=== PATIENT | male | born 2000 | race Caucasian/White ===

== ENCOUNTER 2020-04-10 22:44 | Emergency (ER) | payer SELFPAY ==
--- NOTE | 2020-04-11 00:56 | ER ---
Nurse's Notes [facility] Name: Nabil Ambriz Age: 19 yrs Sex: Male : 2000 Arrival Date: 04/10/2020 Time: 22:51 Bed 19 Private MD: Diagnosis: Cough Presentation: 04/10 23:08 Chief complaint: Patient states: muscle aches and pains since Friday with difficulty dm5 breathing and cough. Coronavirus screen: congestion, cough unrelated to allergies, difficulty breathing, muscle pain, Client presents with at least one sign or symptom that may indicate coronavirus-19. Standard/surgical mask placed on the client. Ebola Screen: Patient negative for fever greater than or equal to 101.5 degrees Fahrenheit, and additional compatible Ebola Virus Disease symptoms Patient denies exposure to infectious person. Patient denies travel to an Ebola-affected area in the 21 days before illness onset. No symptoms or risks identified at this time. Initial Sepsis Screen: Does the patient meet any 2 criteria? No. Patient's initial sepsis screen is negative. Does the patient have a suspected source of infection? Yes: Productive cough/pneumonia. Risk Assessment: Do you want to hurt yourself or someone else? Patient reports no desire to harm self or others. Onset of symptoms was April 08, 2020. 23:08 Method Of Arrival: Ambulatory dm5 23:08 Acuity: SANDY 3 dm5 - Social history:: Patient/guardian denies using alcohol, street drugs, The patient lives with family. Screenin/01 01:15 Abuse screen: Denies threats or abuse. Denies injuries from another. Nutritional aj1 screening: No deficits noted. Tuberculosis screening: No symptoms or risk factors identified. Fall Risk None identified. Assessment: 01:15 General: Appears in no apparent distress. comfortable, Behavior is calm, cooperative, aj1 appropriate for age. Pain: Denies pain. Neuro: Level of Consciousness is awake, alert, obeys commands, Oriented to person, place, time, situation. Cardiovascular: Denies chest pain, palpitations, Heart tones S1 S2 present Patient's skin is warm and dry. Rhythm is regular. Respiratory: Reports shortness of breath cough that is hacking, persistent Airway is patent Respiratory effort is even, unlabored, Respiratory pattern is regular, symmetrical, Breath sounds are clear bilaterally. GI: No signs and/or symptoms were reported involving the gastrointestinal system. : No signs and/or symptoms were reported regarding the genitourinary system. EENT: Reports nasal congestion nasal discharge watery eyes. Derm: No signs and/or symptoms reported regarding the dermatologic system. Skin is pink, warm \T\ dry. normal. Musculoskeletal: No signs and/or symptoms reported regarding the musculoskeletal system. Circulation, motion, and sensation intact. Vital Signs: 04/10 23:08 Pulse 95; Resp 20; Pulse Ox 100% on R/A; dm5 ED Course: 22:51 Patient arrived in ED. cl3 23:09 Triage completed. dm5 04/11 00:38 Davina Watson MD is Attending Physician. ma2 00:51 Ericka Landaverde RN is Primary Nurse. aj1 01:15 Patient has correct armband on for positive identification. Bed in low position. Call aj1 light in reach. Side rails up X 1. 01:15 No provider procedures requiring assistance completed. Patient did not have IV access aj1 during this emergency room visit. Administered Medications: 01:15 Drug: TORadol 60 mg Route: IM; Site: right deltoid; aj1 01:32 Follow up: Response: No adverse reaction aj1 Outcome: 00:55 Discharge ordered by . ma2 01:32 Discharged to home ambulatory. aj1 01:32 Condition: good 01:32 Discharge instructions given to patient, Instructed on discharge instructions, follow up and referral plans. medication usage, Demonstrated understanding of instructions, follow-up care, medications, Prescriptions given X 3. 01:32 Patient left the ED. aj1 Addendum: 04/14/2020 09:39 Addendum: COVID-19 Result: Negative result given to RN to notify pt. Attempted to i w contact pt regarding negative COVID-19 swab results. Left voice mail. 09:59 Addendum: COVID-19 Result: Negative result given to RN to notify pt. Notified pt of i w negative COVID 19 swab results. Pt advised that even with a negative test result they should remain in isolation until symptom free for 3 days without medication. Pt also advised to return to the ED for worsening symptoms. Signatures: Ericka Landaverde RN RN aj1 Galina Dickinson RN RN 5 Jeison, Marjorie, RN Davina Tomas MD MD ma2 Kaitlynn Hayes cl3
--- NOTE | 2020-04-11 00:56 | EDPHYS ---
Physician Documentation [facility] Name: Nabil Ambriz Age: 19 yrs Sex: Male : 2000 Arrival Date: 04/10/2020 Time: 22:51 Bed 19 Private MD: ED Physician Davina Watson HPI: 04/11 00:53 This 19 yrs old Male presents to ER via Ambulatory with complaints of ma2 Breathing Difficulty. 00:53 This 19 yrs old Male presents to ER via Ambulatory with complaints of cough ma2 and runny nose . 00:53 The patient has shortness of breath while exercising. Onset: The symptoms/episode ma2 began/occurred gradually, 1 day(s) ago. Associated signs and symptoms: Pertinent positives: non-productive cough, Pertinent negatives: productive cough, diaphoresis, fever, loss of consciousness, nausea, numbness in extremities. Severity of symptoms: At their worst the symptoms were very mild in the emergency department the symptoms are unchanged. The patient has not experienced similar symptoms in the past. - Social history:: Patient/guardian denies using alcohol, street drugs, The patient lives with family. ROS: 00:53 Constitutional: Negative for fever, chills, and weight loss. ma2 00:53 All other systems are negative. Exam: 00:53 Constitutional: This is a well developed, well nourished patient who is awake, alert, ma2 and in no acute distress. Head/Face: Normocephalic, atraumatic. Eyes: Pupils equal round and reactive to light, extra-ocular motions intact. Lids and lashes normal. Conjunctiva and sclera are non-icteric and not injected. Cornea within normal limits. Periorbital areas with no swelling, redness, or edema. ENT: Nares patent. No nasal discharge, no septal abnormalities noted. Tympanic membranes are normal and external auditory canals are clear. Oropharynx with no redness, swelling, or masses, exudates, or evidence of obstruction, uvula midline. Mucous membranes moist. Neck: Trachea midline, no thyromegaly or masses palpated, and no cervical lymphadenopathy. Supple, full range of motion without nuchal rigidity, or vertebral point tenderness. No Meningismus. Chest/axilla: Normal chest wall appearance and motion. Nontender with no deformity. No lesions are appreciated. Cardiovascular: Regular rate and rhythm with a normal S1 and S2. No gallops, murmurs, or rubs. Normal PMI, no JVD. No pulse deficits. Respiratory: Lungs have equal breath sounds bilaterally, clear to auscultation and percussion. No rales, rhonchi or wheezes noted. No increased work of breathing, no retractions or nasal flaring. Abdomen/GI: Soft, non-tender, with normal bowel sounds. No distension or tympany. No guarding or rebound. No evidence of tenderness throughout. Skin: Warm, dry with normal turgor. Normal color with no rashes, no lesions, and no evidence of cellulitis. MS/ Extremity: Pulses equal, no cyanosis. Neurovascular intact. Full, normal range of motion. Neuro: Awake and alert, GCS 15, oriented to person, place, time, and situation. Cranial nerves II-XII grossly intact. Motor strength 5/5 in all extremities. Sensory grossly intact. Cerebellar exam normal. Normal gait. Vital Signs: 04/10 23:08 Pulse 95; Resp 20; Pulse Ox 100% on R/A; dm5 MDM: 04/11 00:38 Patient medically screened. ma2 00:53 Differential diagnosis: uri, covid, vs acute bronchitis vs allergic rhinitis. ma2 Antibiotic administration: Not indicated. Data reviewed: vital signs, nurses notes. Counseling: I had a detailed discussion with the patient and/or guardian regarding: the historical points, exam findings, and any diagnostic results supporting the discharge/admit diagnosis, the presence of at least one elevated blood pressure reading (>120/80) during this emergency department visit, the need for outpatient follow up. 04/11 00:46 Order name: OSMEL-19 ma2 Administered Medications: 01:15 Drug: TORadol 60 mg Route: IM; Site: right deltoid; aj1 01:32 Follow up: Response: No adverse reaction aj1 Disposition: 04/11/20 00:55 Discharged to Home. Impression: Cough. - Condition is Stable. - Discharge Instructions: Cough, Adult, [id number]. - Prescriptions for Diclofenac Sodium 75 mg Oral Tablet Sustained Release - take 1 tablet by ORAL route 2 times per day; 30 tablet. Zithromax Z- Cong 250 mg Oral Tablet - take 1 tablet by ORAL route as directed for 5 days Day 1 - take two (2) tablets one time. Day 2, 3, 4 , 5 take one (1) tablet once daily.; 6 tablet. Medrol (Cong) 4 mg Oral Tablets, Dose Pack - take 1 tablet by ORAL route as directed - follow package instructions; 1 packet. - Medication Reconciliation Form, Thank You Letter, Antibiotic Education, Prescription Opioid Use form. - Follow up: Private Physician; When: Tomorrow; Reason: Continuance of care. Signatures: Dispatcher [employer] Ericka Winter RN RN aj1 Davina Watson MD MD ma2 Corrections: (The following items were deleted from the chart) 01:32 00:55 04/11/2020 00:55 Discharged to Home. Impression: Cough. Condition is Stable. aj1 Prescriptions for Diclofenac Sodium 75 mg Oral Tablet Sustained Release - take 1 tablet by ORAL route 2 times per day; 30 tablet, Zithromax Z-Cong 250 mg Oral Tablet - take 1 tablet by ORAL route as directed for 5 days Day 1 - take two (2) tablets one time. Day 2, 3, 4 , 5 take one (1) tablet once daily.; 6 tablet, Medrol (Cong) 4 mg Oral Tablets, Dose Pack - take 1 tablet by ORAL route as directed - follow package instructions; 1 packet. and Forms are Medication Reconciliation Form, Thank You Letter, Antibiotic Education, Prescription Opioid Use. Follow up: Private Physician; When: Tomorrow; Reason: Continuance of care. ma2
[2020-04-11] MEDS ORDERED: KETOROLAC 30 MG/ML INJ ONE (01:14)
[2020-04-11 01:53] VITALS: O2SAT 100
== END 2020-04-11 01:32 | disposition home or self-care (01) ==
LOC: ER 22:44
DX: R05 Cough (principal); Z20.828 Contact with and (suspected) exposure to other viral communicable diseases
CPT/HCPCS: 96372; 99283; U0002

== ENCOUNTER 2021-06-04 20:03 | Emergency (ER) | payer SELFPAY ==
--- OUTSIDE RECORDS SUMMARY | 2021-06-04 20:06 | XMS REPORT | Continuity of Care Document ---
:2000 Author Organization [facility] t Address [address] [place] [id number] Care Team Providers Name Role Phone Unavailable Unavailable Unavailable Problems This patient has no known problems. Allergies, Adverse Reactions, Alerts This patient has no known allergies or adverse reactions. Medications This patient has no known medications. Procedures This patient has no known procedures. Results This patient has no known results.
[2021-06-04 21:53] LABS: SARS-COV-2 RT PCR NEGATIVE (NEGATIVE)
--- NOTE | 2021-06-04 22:23 | ER ---
Nurse's Notes [facility] Name: Nabil Ambriz Age: 20 yrs Sex: Male : 2000 Arrival Date: 06/04/2021 Time: 20:06 Bed 18 Private MD: Diagnosis: Acute pharyngitis, unspecified Presentation: 06/04 20:17 Chief complaint: Patient states: "I started not feeling good on . On Friday tw5 morning my throat was sore, it is hard to eat, hard to drink. I cannot drink anything without it making me want to throw up.". Coronavirus screen: Vaccine status: Patient reports being unvaccinated. Ebola Screen: Patient negative for fever greater than or equal to 101.5 degrees Fahrenheit, and additional compatible Ebola Virus Disease symptoms Patient denies exposure to infectious person. Patient denies travel to an Ebola-affected area in the 21 days before illness onset. Initial Sepsis Screen: Does the patient meet any 2 criteria? HR > 90 bpm. Does the patient have a suspected source of infection? No. Patient's initial sepsis screen is negative. Risk Assessment: Do you want to hurt yourself or someone else? Patient reports no desire to harm self or others. Onset of symptoms was May 31, 2021. 20:17 Method Of Arrival: Ambulatory tw5 20:17 Acuity: SANDY 4 tw5 Triage Assessment: 20:19 General: Appears in no apparent distress. Behavior is calm, cooperative, appropriate tw5 for age. Pain: Complains of pain in uvula, left aspect of posterior pharynx and right aspect of posterior pharynx Pain currently is 8 out of 10 on a pain scale. EENT: Throat is reddened bilaterally with gag reflex present. Historical: - Allergies: 20:19 No Known Allergies; tw5 - Home Meds: 20:19 None [Active]; tw5 - PMHx: 20:19 None; tw5 - PSHx: 20:19 None; tw5 - Immunization history:: Flu vaccine is not up to date. - Social history:: Smoking status: Reported history of juuling and/or vaping. Screenin:22 Abuse screen: Denies threats or abuse. Denies injuries from another. Nutritional tw5 screening: Difficulty chewing/swallowing? Yes. 22:38 Tuberculosis screening: No symptoms or risk factors identified. Fall Risk None as6 identified. Assessment: 20:22 Respiratory: Respiratory effort is. tw5 21:08 Reassessment: Patient appears in no apparent distress at this time. tw5 22:36 General: Appears in no apparent distress. Behavior is calm, cooperative. Pain: Denies as6 pain. Neuro: Level of Consciousness is awake, alert, obeys commands, Oriented to person, place, time, situation. Cardiovascular: Capillary refill < 3 seconds Patient's skin is warm and dry. Respiratory: Airway is patent Trachea midline Respiratory effort is even, unlabored, Respiratory pattern is regular, symmetrical, Breath sounds are clear bilaterally. EENT: Reports sore throat . Vital Signs: 20:17 BP 108 / 71; Pulse 104; Resp 18; Temp 98.6(O); Pulse Ox 98% on R/A; Weight 68.04 kg; tw5 Height 5 ft. 7 in. (170.18 cm); Pain 8/10; 22:35 BP 106 / 77; Pulse 84; Resp 16 S; Pulse Ox 99% on R/A; as6 20:17 Body Mass Index 23.49 (68.04 kg, 170.18 cm) tw5 ED Course: 20:06 Patient arrived in ED. kc5 20:19 Triage completed. tw5 20:19 Arm band placed on right wrist. tw5 20:22 Strep Sent. tw5 20:22 Strep swab sent to lab. tw5 21:08 COVID swab sent to lab. Flu and/or RSV swab sent to lab. tw5 21:09 COVID-19/FLU A+B (Document "Date of Onset" if Symptomatic) Sent. tw5 21:09 Strep Sent. tw5 21:54 Chiki Felipe, MICHELET is Primary Nurse. as6 22:02 Som Madrigal NP is PHCP. pm1 22:02 Martinez Little MD is Attending Physician. pm1 22:37 No provider procedures requiring assistance completed. Patient did not have IV access as6 during this emergency room visit. 22:38 Bed in low position. Call light in reach. Side rails up X2. Pulse ox on. NIBP on. as6 Administered Medications: 22:35 Drug: Decadron (dexamethasone) 10 mg Route: IM; Site: left ventrogluteal; as6 22:38 Follow up: Response: No adverse reaction as6 Outcome: 22:22 Discharge ordered by . pm1 22:37 Discharged to home ambulatory. as6 22:37 Condition: stable 22:37 Discharge instructions given to patient, Instructed on discharge instructions, follow up and referral plans. Demonstrated understanding of instructions, follow-up care. 22:38 Patient left the ED. as6 Signatures: Som Madrigal NP BUSINESS DEVELOPMENT EXECUTIVE pm1 Nury Dorsey tw5 Chiki Felipe RN RN as6 Courtney Antonio kc5
--- NOTE | 2021-06-04 22:23 | EDPHYS ---
Physician Documentation [facility] Name: Nabil Ambriz Age: 20 yrs Sex: Male : 2000 Arrival Date: 06/04/2021 Time: 20:06 Bed 18 Private MD: ED Physician Martinez Little HPI: 06/04 22:15 This 20 yrs old Male presents to ER via Ambulatory with complaints of Sore Throat. pm1 22:15 The patient presents with sore throat. The patient describes throat pain as constant, pm1 raw, scratchy. Onset: The symptoms/episode began/occurred 4 day(s) ago. Severity of symptoms: in the emergency department the symptoms are actually worse. Modifying factors: the symptoms are aggravated by fluids, foods, swallowing, The patient has had contact with sick significant other, similar symptoms. Associated signs and symptoms: Pertinent negatives cough, fever, vomiting. The patient has not recently seen a physician. Historical: - Allergies: 20:19 No Known Allergies; tw5 - Home Meds: 20:19 None [Active]; tw5 - PMHx: 20:19 None; tw5 - PSHx: 20:19 None; tw5 - Immunization history:: Flu vaccine is not up to date. - Social history:: Smoking status: Reported history of juuling and/or vaping. ROS: 22:15 Constitutional: Negative for fever, chills, and weight loss. pm1 22:15 Cardiovascular: Negative for chest pain, palpitations, and edema, Respiratory: Negative for shortness of breath, cough, wheezing, and pleuritic chest pain. 22:15 MS/Extremity: Negative for injury and deformity, Skin: Negative for injury, rash, and discoloration, Neuro: Negative for headache, weakness, numbness, tingling, and seizure. 22:15 ENT: Positive for sore throat, Negative for ear pain. 22:15 Neck: Positive for swollen nodes. 22:15 Abdomen/GI: Positive for nausea, Negative for abdominal pain, vomiting, diarrhea. 22:15 All other systems are negative. Exam: 22:15 Constitutional: This is a well developed, well nourished patient who is awake, alert, pm1 and in no acute distress. Head/Face: Normocephalic, atraumatic. 22:15 Skin: Warm, dry with normal turgor. Normal color with no rashes, no lesions, and no evidence of cellulitis. MS/ Extremity: Pulses equal, no cyanosis. Neurovascular intact. Full, normal range of motion. 22:15 ENT: Exam is negative for acute changes, Mouth: Lips: normal, moist, Oral mucosa: normal, pink and intact, moist, Posterior pharynx: Tonsils: bilaterally enlarged, with erythema, no exudate, no ulcerations, erythema, that is moderate, exudate, is not appreciated, peritonsillar mass, is not appreciated, pooling of secretions, is not appreciated. 22:15 Neck: Lymph nodes: lymphadenopathy is appreciated, anterior cervical nodes. 22:15 Cardiovascular: Exam negative for acute changes, Rate: normal, Rhythm: regular, Pulses: no pulse deficits are appreciated. 22:15 Respiratory: Exam negative for acute changes, respiratory distress, shortness of breath. 22:15 Neuro: Exam negative for acute changes, Orientation: is normal, Mentation: is normal, Motor: is normal, moves all fours. Vital Signs: 20:17 BP 108 / 71; Pulse 104; Resp 18; Temp 98.6(O); Pulse Ox 98% on R/A; Weight 68.04 kg; tw5 Height 5 ft. 7 in. (170.18 cm); Pain 8/10; 22:35 BP 106 / 77; Pulse 84; Resp 16 S; Pulse Ox 99% on R/A; as6 20:17 Body Mass Index 23.49 (68.04 kg, 170.18 cm) tw5 MDM: 22:10 Patient medically screened. [facility] 22:20 Data reviewed: vital signs. Data interpreted: Pulse oximetry: on room air is 98 %. pm1 Interpretation: normal. Counseling: I had a detailed discussion with the patient and/or guardian regarding: the historical points, exam findings, and any diagnostic results supporting the discharge/admit diagnosis, lab results, the need for outpatient follow up, to return to the emergency department if symptoms worsen or persist or if there are any questions or concerns that arise at home. 22:20 Differential diagnosis: mononucleosis, peritonsillar abscess pharyngitis. pm1 06/04 20:15 Order name: Strep; Complete Time: 22:15 tw5 06/04 20:59 Order name: COVID-19/FLU A+B (Document "Date of Onset" if Symptomatic); Complete Time: as6 22:15 06/04 21:28 Order name: Throat Culture EDMS Administered Medications: 22:35 Drug: Decadron (dexamethasone) 10 mg Route: IM; Site: left ventrogluteal; as6 22:38 Follow up: Response: No adverse reaction as6 Disposition: 06/05 08:52 Co-signature as Attending Physician, Martinez Little MD I agree with the assessment and cristy plan of care. Disposition Summary: 06/04/21 22:22 Discharge Ordered Location: Home pm1 Problem: new pm1 Symptoms: have improved pm1 Condition: Stable pm1 Diagnosis - Acute pharyngitis, unspecified pm1 Followup: pm1 - With: Emergency Department - When: As needed - Reason: Worsening of condition Followup: pm1 - With: Private Physician - When: 2 - 3 days - Reason: Recheck today's complaints, Continuance of care, Re-evaluation by your physician Discharge Instructions: - Discharge Summary Sheet pm1 - Pharyngitis pm1 Forms: - Medication Reconciliation Form pm1 - Thank You Letter pm1 - Antibiotic Education pm1 - Work release form pm1 - Prescription Opioid Use pm1 Signatures: Dispatcher [employer] EDMartinez Rothman MD MD cha Marinas, Patrick, CARBURETOR EXPERT CARBURETOR EXPERT pm1 Nury Dorsey tw5 Chiki Felipe, MICHELET RN as6
[2021-06-04] MEDS ORDERED: dexAMETHasone 10 MG/ML VIAL ONE (22:32)
[2021-06-05 04:07] VITALS: BP 106/77; O2SAT 99
[2021-06-05 04:09] VITALS: TEMP 98.6
== END 2021-06-04 22:38 | disposition home or self-care (01) ==
LOC: ER 20:03
DX: J02.9 Acute pharyngitis, unspecified (principal); Z20.822 Contact with and (suspected) exposure to COVID-19
CPT/HCPCS: 0240U; 87070; 87081; 96372; 99283; J1100

== ENCOUNTER 2021-07-11 08:14 | Emergency (ER) | payer SELFPAY ==
--- OUTSIDE RECORDS SUMMARY | 2021-07-11 08:17 | XMS REPORT | Continuity of Care Document ---
:2000 Author Organization [facility] t Address [address] [place] [address] Care Team Providers Name Role Phone Unavailable Unavailable Unavailable Problems This patient has no known problems. Allergies, Adverse Reactions, Alerts This patient has no known allergies or adverse reactions. Medications This patient has no known medications. Procedures This patient has no known procedures. Results This patient has no known results.
--- NOTE | 2021-07-11 09:00 | EDPHYS ---
Physician Documentation [facility] Name: Nabil Ambriz Age: 20 yrs Sex: Male : 2000 Arrival Date: 07/11/2021 Time: 08:16 Bed 8 Private MD: ED Physician Davina Watson HPI: 07/11 08:57 This 20 yrs old Male presents to ER via Ambulatory with complaints of Blurred Vision, ma2 Headache. 08:57 Patient had an episode of blurred vision near syncope, he said that he has been having ma2 runny nose for the last 2 days, no sore throat or cough, no vomiting diarrhea.. Historical: - Allergies: 08:38 No Known Allergies; jg9 - Home Meds: 08:38 None [Active]; jg9 - PMHx: 08:38 None; jg9 - PSHx: 08:38 None; jg9 - Immunization history:: Adult Immunizations not up to date. - Social history:: Smoking status: Reported history of juuling and/or vaping. - Family history:: not pertinent. ROS: 08:57 Constitutional: Negative for fever, chills, and weight loss, Eyes: Negative for injury, ma2 pain, redness, and discharge. 08:57 All other systems are negative. Exam: 08:57 Constitutional: This is a well developed, well nourished patient who is awake, alert, ma2 and in no acute distress. Head/Face: Normocephalic, atraumatic. Eyes: Pupils equal round and reactive to light, extra-ocular motions intact. Lids and lashes normal. Conjunctiva and sclera are non-icteric and not injected. Cornea within normal limits. Periorbital areas with no swelling, redness, or edema. ENT: Red oropharynx, otherwise nares patent. No nasal discharge, no septal abnormalities noted. Tympanic membranes are normal and external auditory canals are clear. Oropharynx with no redness, swelling, or masses, exudates, or evidence of obstruction, uvula midline. Mucous membranes moist. Neck: Trachea midline, no thyromegaly or masses palpated, and no cervical lymphadenopathy. Supple, full range of motion without nuchal rigidity, or vertebral point tenderness. No Meningismus. Chest/axilla: Normal chest wall appearance and motion. Nontender with no deformity. No lesions are appreciated. Cardiovascular: Regular rate and rhythm with a normal S1 and S2. No gallops, murmurs, or rubs. Normal PMI, no JVD. No pulse deficits. Respiratory: Lungs have equal breath sounds bilaterally, clear to auscultation and percussion. No rales, rhonchi or wheezes noted. No increased work of breathing, no retractions or nasal flaring. Abdomen/GI: Soft, non-tender, with normal bowel sounds. No distension or tympany. No guarding or rebound. No evidence of tenderness throughout. Skin: Warm, dry with normal turgor. Normal color with no rashes, no lesions, and no evidence of cellulitis. MS/ Extremity: Pulses equal, no cyanosis. Neurovascular intact. Full, normal range of motion. Neuro: Awake and alert, GCS 15, oriented to person, place, time, and situation. Cranial nerves II-XII grossly intact. Motor strength 5/5 in all extremities. Sensory grossly intact. Cerebellar exam normal. Normal gait. Vital Signs: 08:34 BP 114 / 66; Pulse 84; Resp 14; Temp 98.2(TE); Pulse Ox 99% ; Weight 68.04 kg (R); jg9 Height 5 ft. 8 in. (172.72 cm) (R); 09:11 BP 115 / 67; Pulse 81; Resp 15; Pulse Ox 99% on R/A; ll1 08:34 Body Mass Index 22.81 (68.04 kg, 172.72 cm) jg9 Visual Acuity: 08:45 Left Eye Visual acuity 20/25, Pupil size 3 mm, ; Right Eye Visual acuity 20/25, Pupil jg9 size 3 mm, ; Both Eyes Visual acuity 20/25; Without Lenses; MDM: 08:57 Differential diagnosis: migraine, tension headache, vasomotor headache. Data reviewed: ma2 vital signs, nurses notes, EMS record. Counseling: I had a detailed discussion with the patient and/or guardian regarding: the historical points, exam findings, and any diagnostic results supporting the discharge/admit diagnosis, the presence of at least one elevated blood pressure reading (>120/80) during this emergency department visit, the need for outpatient follow up. Response to treatment: the patient's symptoms have markedly improved after treatment. 09:00 Patient medically screened. ma2 07/11 09:12 Order name: EKG; Complete Time: 09:13 ll1 07/11 09:13 Order name: EKG - Nurse/Tech; Complete Time: 09:13 ll1 Administered Medications: No medications were administered Disposition Summary: 07/11/21 09:00 Discharge Ordered Location: Home ma2 Condition: Stable ma2 Diagnosis - Acute upper respiratory infection, unspecified ma2 Followup: ma2 - With: Private Physician - When: Tomorrow - Reason: If symptoms return, Continuance of care Discharge Instructions: - Discharge Summary Sheet ma2 - Upper Respiratory Infection, Adult ma2 Forms: - Medication Reconciliation Form ma2 - Thank You Letter ma2 - Antibiotic Education ma2 - Prescription Opioid Use ma2 - Work release form ll1 Signatures: Davina Watson MD MD ma2 Jose Carlos Hayes RN RN ll1 Aby John RN RN jg9 Corrections: (The following items were deleted from the chart) 08:59 08:57 Constitutional: This is a well developed, well nourished patient who is awake, ma2 alert, and in no acute distress. Head/Face: Normocephalic, atraumatic. Eyes: Pupils equal round and reactive to light, extra-ocular motions intact. Lids and lashes normal. Conjunctiva and sclera are non-icteric and not injected. Cornea within normal limits. Periorbital areas with no swelling, redness, or edema. ENT: Nares patent. No nasal discharge, no septal abnormalities noted. Tympanic membranes are normal and external auditory canals are clear. Oropharynx with no redness, swelling, or masses, exudates, or evidence of obstruction, uvula midline. Mucous membranes moist. Neck: Trachea midline, no thyromegaly or masses palpated, and no cervical lymphadenopathy. Supple, full range of motion without nuchal rigidity, or vertebral point tenderness. No Meningismus. Chest/axilla: Normal chest wall appearance and motion. Nontender with no deformity. No lesions are appreciated. Cardiovascular: Regular rate and rhythm with a normal S1 and S2. No gallops, murmurs, or rubs. Normal PMI, no JVD. No pulse deficits. Respiratory: Lungs have equal breath sounds bilaterally, clear to auscultation and percussion. No rales, rhonchi or wheezes noted. No increased work of breathing, no retractions or nasal flaring. Abdomen/GI: Soft, non-tender, with normal bowel sounds. No distension or tympany. No guarding or rebound. No evidence of tenderness throughout. Skin: Warm, dry with normal turgor. Normal color with no rashes, no lesions, and no evidence of cellulitis. MS/ Extremity: Pulses equal, no cyanosis. Neurovascular intact. Full, normal range of motion. Neuro: Awake and alert, GCS 15, oriented to person, place, time, and situation. Cranial nerves II-XII grossly intact. Motor strength 5/5 in all extremities. Sensory grossly intact. Cerebellar exam normal. Normal gait. ma2
--- NOTE | 2021-07-11 09:00 | ER ---
Nurse's Notes [facility] Name: Nabil Ambriz Age: 20 yrs Sex: Male : 2000 Arrival Date: 07/11/2021 Time: 08:16 Bed 8 Private MD: Diagnosis: Acute upper respiratory infection, unspecified Presentation: 07/11 08:34 Chief complaint: Patient states: 3 days ago on Friday around 6 PM I started getting a jg9 headache but it went away, and then I felt nauseated and had chills that lasted 2 days, today while at work on the [employer] while walking my vision went dark and I kind of stumbled and my co-workers saw me and asked it I was ok and I told them I wasn't feeling well so they advised me to come the emergency department. Coronavirus screen: Vaccine status: Patient reports being unvaccinated. Ebola Screen: Patient negative for fever greater than or equal to 101.5 degrees Fahrenheit, and additional compatible Ebola Virus Disease symptoms Patient denies exposure to infectious person. Patient denies travel to an Ebola-affected area in the 21 days before illness onset. Initial Sepsis Screen: Does the patient meet any 2 criteria? No. Patient's initial sepsis screen is negative. Does the patient have a suspected source of infection? No. Patient's initial sepsis screen is negative. Risk Assessment: Do you want to hurt yourself or someone else? Patient reports no desire to harm self or others. Onset of symptoms was June 07, 2021. 08:34 Method Of Arrival: Ambulatory j9 08:34 Acuity: SANDY 3 jg9 Triage Assessment: 08:38 General: Appears in no apparent distress. Behavior is calm, cooperative. Pain: Denies jg9 pain. Neuro: Reports recent vision impairment and headache. 08:39 Pain: Denies pain. jg9 08:40 Headache History: Other no current headache, no hx. Pain: Pain. Pain: Denies pain. Pain jg9 currently is 0 out of 10 on a pain scale. Neuro: Reports. 08:40 Pain: Pain began 2-3 days ago. jg9 08:41 Pain: Also complains of no other associated symptoms. jg9 Historical: - Allergies: 08:38 No Known Allergies; jg9 - Home Meds: 08:38 None [Active]; jg9 - PMHx: 08:38 None; jg9 - PSHx: 08:38 None; jg9 - Immunization history:: Adult Immunizations not up to date. - Social history:: Smoking status: Reported history of juuling and/or vaping. - Family history:: not pertinent. Screenin:39 Abuse screen: Denies threats or abuse. Denies injuries from another. Nutritional jg9 screening: No deficits noted. Tuberculosis screening: No symptoms or risk factors identified. Fall Risk None identified. Assessment: 08:54 Reassessment: Patient appears in no apparent distress at this time. No changes from 1 previously documented assessment. Patient and/or family updated on plan of care and expected duration. Pain level reassessed. Patient is alert, oriented x 3, equal unlabored respirations, skin warm/dry/pink. Vital Signs: 08:34 BP 114 / 66; Pulse 84; Resp 14; Temp 98.2(TE); Pulse Ox 99% ; Weight 68.04 kg (R); jg9 Height 5 ft. 8 in. (172.72 cm) (R); 09:11 BP 115 / 67; Pulse 81; Resp 15; Pulse Ox 99% on R/A; ll1 08:34 Body Mass Index 22.81 (68.04 kg, 172.72 cm) jg9 Visual Acuity: 08:45 Left Eye Visual acuity 20/25, Pupil size 3 mm, ; Right Eye Visual acuity 20/25, Pupil jg9 size 3 mm, ; Both Eyes Visual acuity 20/25; Without Lenses; ED Course: 08:16 Patient arrived in ED. ds1 08:18 Davina Watson MD is Attending Physician. ma2 08:38 Triage completed. jg9 08:39 Arm band placed on right wrist. jg9 08:42 Jose Carlos Hayes, MICHELET is Primary Nurse. ll1 08:42 Patient placed in an exam room, on a stretcher. ll1 08:43 Patient has correct armband on for positive identification. Bed in low position. Call ll1 light in reach. Side rails up X 1. Cardiac monitoring not applicable on this patient. 08:55 Dr. Watson at bedside. ll1 09:12 No provider procedures requiring assistance completed. Patient did not have IV access ll1 during this emergency room visit. Administered Medications: No medications were administered Outcome: 09:00 Discharge ordered by . jose 09:12 Discharged to home ambulatory. ll1 09:12 Condition: stable 09:12 Discharge instructions given to patient, Instructed on discharge instructions, follow up and referral plans. Demonstrated understanding of instructions, follow-up care. 09:14 Patient [address] the ED[address] [facility] Signatures: Marva Tolliver ds1 Davina Watson MD MD ma2 Jose Carlos Hayes RN RN ll1 Aby John RN RN jg9 Corrections: (The following items were deleted from the chart) 08:40 08:38 Headache History: Denies prior headaches. jg9 jg9
[2021-07-11 09:19] VITALS: TEMP 98.2; O2SAT 99
[2021-07-11 09:20] VITALS: BP 115/67
== END 2021-07-11 09:14 | disposition home or self-care (01) ==
LOC: ER 08:14
DX: J06.9 Acute upper respiratory infection, unspecified (principal)
CPT/HCPCS: 93005; 99282

== ENCOUNTER 2021-08-01 14:29 | Emergency (ER) | payer SELFPAY ==
--- OUTSIDE RECORDS SUMMARY | 2021-08-01 14:32 | XMS REPORT | Continuity of Care Document ---
:2000 Author Organization [facility] t Address [address] [place] [address] Dr. Dean [address] [place] [id number] Care Team Providers Name Role Phone Unavailable Unavailable Unavailable Problems This patient has no known problems. Allergies, Adverse Reactions, Alerts This patient has no known allergies or adverse reactions. Medications This patient has no known medications. Procedures This patient has no known procedures. Results This patient has no known results.
--- NOTE | 2021-08-01 15:52 | RAD REPORT ---
EXAM DESCRIPTION: RAD - Hand Right 3 View - 08/01/2021 3:42 pm CLINICAL HISTORY: PAIN, blunt force trauma to the hand, pain primarily middle finger go COMPARISON: No comparisonsNone. FINDINGS: No fracture is identified. There is no dislocation or periosteal reaction noted. No forei gn body or significant soft tissue abnormality. IMPRESSION: Negative right hand examination.
--- NOTE | 2021-08-01 15:53 | RAD REPORT ---
EXAM DESCRIPTION: RAD - Knee Left 3 View - 08/01/2021 3:42 pm CLINICAL HISTORY: PAIN, trip and fall COMPARISON: No comparisons FINDINGS: No fracture, dislocation or periosteal reaction.No joint effusion seen. No joint space gallo rowing. No soft tissue abnormality. IMPRESSION: Negative left knee. Clinical concerns for internal derangement or occult bony injury could be further assessed with MR im aging.
--- NOTE | 2021-08-01 16:04 | ER ---
Nurse's Notes [facility] Name: Nabil Ambriz Age: 20 yrs Sex: Male : 2000 Arrival Date: 08/01/2021 Time: 14:32 Bed 9 Private MD: Diagnosis: Contusion of finger without damage to nail;Pain in left knee Presentation: 08/01 14:38 Chief complaint:. Chief complaint: Patient states: "I was carrying a hydraulic hermann at [employer] work and tripped over a hose. The hermann smashed my right middle finger and my right knee I think got hyperextended." Pt c/o right middle finger pain and lleft knee pain that radiated to his back. Coronavirus screen: Vaccine status: Patient reports being unvaccinated. Client denies travel out of the [place] in the last 14 days. At this time, the client does not indicate any symptoms associated with coronavirus-19. Ebola Screen: Patient negative for fever greater than or equal to 101.5 degrees Fahrenheit, and additional compatible Ebola Virus Disease symptoms Patient denies exposure to infectious person. Patient denies travel to an Ebola-affected area in the 21 days before illness onset. No symptoms or risks identified at this time. Initial Sepsis Screen: Does the patient meet any 2 criteria? No. Patient's initial sepsis screen is negative. Does the patient have a suspected source of infection? No. Patient's initial sepsis screen is negative. Risk Assessment: Do you want to hurt yourself or someone else? Patient reports no desire to harm self or others. Onset of symptoms is unknown. 14:38 Acuity: SANDY 4 ab2 14:38 Method Of Arrival: Ambulatory ab2 Triage Assessment: 14:41 General: Appears in no apparent distress. uncomfortable, Behavior is calm, cooperative, ab2 appropriate for age. Pain: Complains of pain in right hand and left knee. Musculoskeletal: Reports pain in right hand and left leg. Historical: - Allergies: 14:41 No Known Allergies; ab2 - Home Meds: 14:41 None [Active]; ab2 - PMHx: 14:41 None; ab2 - PSHx: 14:41 None; ab2 - Immunization history:: Adult Immunizations up to date. - Social history:: Smoking status: Reported history of juuling and/or vaping. Screenin:54 Abuse screen: Denies threats or abuse. Nutritional screening: No deficits noted. ss7 Tuberculosis screening: No symptoms or risk factors identified. Fall Risk None identified. Assessment: 14:53 General: Appears in no apparent distress. Behavior is calm, cooperative, appropriate ss7 for age. Neuro: No deficits noted. Cardiovascular: Heart tones S1 S2 Capillary refill < 3 seconds. Respiratory: Breath sounds are clear bilaterally. GI: No deficits noted. : No deficits noted. EENT: No deficits noted. Derm: No deficits noted. Musculoskeletal: Swelling present in right hand Reports pain in left knee. Vital Signs: 14:38 BP 123 / 81; Pulse 72; Resp 15; Temp 98.9(TE); Pulse Ox 99% on R/A; Weight 65.77 kg; ab2 Height 5 ft. 8 in. (172.72 cm); Pain 9/10; 15:52 BP 109 / 65; Pulse 72; Resp 18; Pulse Ox 98% on R/A; ss7 14:38 Body Mass Index 22.05 (65.77 kg, 172.72 cm) ab2 ED Course: 14:32 Patient arrived in ED. kz 14:41 Triage completed. ab2 14:42 Arm band placed on left wrist. ab2 14:49 Kurt Cm PA is PHCP. jr8 14:49 Gokul Carballo MD is Attending Physician. jr8 14:53 Ladonna Oropeza, MICHELET is Primary Nurse. ss7 14:54 Patient has correct armband on for positive identification. ss7 14:54 No provider procedures requiring assistance completed. Patient did not have IV access ss7 during this emergency room visit. 15:25 X-ray completed. Portable x-ray completed in exam room. Patient tolerated procedure mh1 well. 15:52 XRAY Hand RIGHT 3 View In Process Unspecified. EDMS 15:52 XRAY Knee LEFT 3 view In Process Unspecified. EDMS 16:03 Gigi Mathur MD is Referral Physician. jr8 Administered Medications: No medications were administered Outcome: 16:04 Discharge ordered by . jr8 16:05 Discharged to home ambulatory. ss7 16:05 Condition: good 16:05 Discharge instructions given to patient, Instructed on discharge instructions, follow up and referral plans. Demonstrated understanding of instructions, follow-up care. 16:21 Patient left the ED. ss7 Signatures: Dispatcher [employer] EDMS Lillian Abdul mh1 Kurt Cm PA PA jr8 Omar Hassan ab2 Ladonna Oropeza RN RN ss7 Jacqueline Guerraz Corrections: (The following items were deleted from the chart) 14:42 14:38 Chief complaint: Patient states: "I was carrying a hydraulic hermann at work and ab2 tripped over a hose. The hermann smashed my right middle finger and my right knee I think got hyperextended." Pt c/o right middle finger pain and right knee pain that radiated to his back. ab2
--- NOTE | 2021-08-01 16:04 | EDPHYS ---
Physician Documentation [facility] Name: Nabil Ambriz Age: 20 yrs Sex: Male : 2000 Arrival Date: 08/01/2021 Time: 14:32 Bed 9 Private MD: ED Physician Gokul Carballo HPI: 08/01 15:02 This 20 yrs old Male presents to ER via Ambulatory with complaints of Knee Injury - jr8 Left, Hand Injury - Right. 15:02 This is a 20-year-old male patient who presented to the emergency room with complaints jr8 of revamping room with knee pain. Patient stated that he was carrying a hydraulic spike hammer when he tripped hyperextending his knee and causing the hammer to land onto his right middle finger. Patient has had pain since the fall. Denies hitting head or neck or any other injury at this time.. Severity of symptoms: At their worst the symptoms were mild in the emergency department the symptoms are unchanged. The patient has not experienced similar symptoms in the past. The patient has not recently seen a physician. Historical: - Allergies: 14:41 No Known Allergies; ab2 - Home Meds: 14:41 None [Active]; ab2 - PMHx: 14:41 None; ab2 - PSHx: 14:41 None; ab2 - Immunization history:: Adult Immunizations up to date. - Social history:: Smoking status: Reported history of juuling and/or vaping. ROS: 15:02 Eyes: Negative for injury, pain, redness, and discharge, ENT: Negative for injury, jr8 pain, and discharge, Neck: Negative for injury, pain, and swelling, Cardiovascular: Negative for chest pain, palpitations, and edema, Respiratory: Negative for shortness of breath, cough, wheezing, and pleuritic chest pain, Abdomen/GI: Negative for abdominal pain, nausea, vomiting, diarrhea, and constipation, Back: Negative for injury and pain, Skin: Negative for injury, rash, and discoloration, Neuro: Negative for headache, weakness, numbness, tingling, and seizure. 15:02 MS/extremity: Positive for pain, swelling, tenderness, of the right hand and left knee. Exam: 15:02 Constitutional: This is a well developed, well nourished patient who is awake, alert, jr8 and in no acute distress. Head/Face: Normocephalic, atraumatic. Neck: Trachea midline, no thyromegaly or masses palpated, and no cervical lymphadenopathy. Supple, full range of motion without nuchal rigidity, or vertebral point tenderness. No Meningismus. Chest/axilla: Normal chest wall appearance and motion. Nontender with no deformity. No lesions are appreciated. Cardiovascular: Regular rate and rhythm with a normal S1 and S2. No gallops, murmurs, or rubs. Normal PMI, no JVD. No pulse deficits. Respiratory: Lungs have equal breath sounds bilaterally, clear to auscultation and percussion. No rales, rhonchi or wheezes noted. No increased work of breathing, no retractions or nasal flaring. Abdomen/GI: Soft, non-tender, with normal bowel sounds. No distension or tympany. No guarding or rebound. No evidence of tenderness throughout. Back: No spinal tenderness. No costovertebral tenderness. Full range of motion. Skin: Warm, dry with normal turgor. Normal color with no rashes, no lesions, and no evidence of cellulitis. Neuro: Awake and alert, GCS 15, oriented to person, place, time, and situation. Cranial nerves II-XII grossly intact. Motor strength 5/5 in all extremities. Sensory grossly intact. 15:02 Musculoskeletal/extremity: Extremities: grossly normal except: noted in the left knee: Patient has mild tenderness to the posterior left knee. Full range of motion both active and passive. Normal sensation with 2+ pedal pulses noted. No external swelling or trauma., noted in the right hand: pain, swelling, tenderness, right middle finger, ROM: intact in all extremities, Circulation is intact in all extremities. Vital Signs: 14:38 BP 123 / 81; Pulse 72; Resp 15; Temp 98.9(TE); Pulse Ox 99% on R/A; Weight 65.77 kg; ab2 Height 5 ft. 8 in. (172.72 cm); Pain 9/10; 15:52 BP 109 / 65; Pulse 72; Resp 18; Pulse Ox 98% on R/A; ss7 14:38 Body Mass Index 22.05 (65.77 kg, 172.72 cm) ab2 Procedures: 16:02 Splinting: Splint applied to right hand using finger splint, applied by nurse. Examined jr8 by me, post splint application: neurovascular intact, 2+ distal pulses palpable, brisk capillary refill noted, Patient tolerated well. MDM: 14:49 Patient medically screened. jr8 15:59 Data reviewed: vital signs, nurses notes, radiologic studies, plain films. Data jr8 interpreted: Pulse oximetry: on room air is 98 %. Interpretation: normal. Counseling: I had a detailed discussion with the patient and/or guardian regarding: the historical points, exam findings, and any diagnostic results supporting the discharge/admit diagnosis, radiology results, the need for outpatient follow up, a family practitioner, to return to the emergency department if symptoms worsen or persist or if there are any questions or concerns that arise at home. 16:02 ED course: Discussed with patient that he needs to ice and take anti-inflammatories jr8 that were going to give him for his hand and knee. Will vegetable picker a soft brace for his knee at [facility] or the pharmacy of his choice. No need for direct immobilization at this time as he can weight-bear and tolerate appropriately. Most likely small tendon sprain to the posterior knee. Discussed with him that both x-rays were unremarkable at this time. If he were to continue to have problems we will refer him to orthopedics and hand. Patient with this at this time.. 08/01 15:01 Order name: XRAY Hand RIGHT 3 View; Complete Time: 15:58 jr8 08/01 15:01 Order name: XRAY Knee LEFT 3 view; Complete Time: 15:58 jr8 08/01 16:02 Order name: Finger Splint; Complete Time: 16:05 jr8 Administered Medications: No medications were administered Disposition: 18:45 Co-signature as Attending Physician, Gokul Carballo MD. rn Disposition Summary: 08/01/21 16:04 Discharge Ordered Location: Home jr8 Problem: new jr8 Symptoms: have improved jr8 Condition: Stable jr8 Diagnosis - Contusion of finger without damage to nail jr8 - Pain in left knee jr8 Followup: jr8 - With: Gigi Mathur MD - When: 1 week - Reason: Recheck today's complaints, Continuance of care, Re-evaluation by your physician Discharge Instructions: - Discharge Summary Sheet jr8 - Contusion jr8 - Musculoskeletal Pain jr8 - Acute Knee Pain, Adult jr8 Forms: - Work release form jr8 - Medication Reconciliation Form jr8 - Thank You Letter jr8 - Antibiotic Education jr8 - Prescription Opioid Use jr8 Prescriptions: - Ibuprofen 800 mg Oral Tablet - take 1 tablet by ORAL route every 12 hours As needed take with food; 20 tablet; jr8 Refills: 0, Product Selection Permitted Signatures: Dispatcher [employer] Gokul Singh MD MD rn Kurt Cm PA PA jr8 Omar Hassan2
[2021-08-01 16:59] VITALS: TEMP 98.9
[2021-08-01 17:00] VITALS: BP 109/65; O2SAT 98
== END 2021-08-01 16:21 | disposition home or self-care (01) ==
LOC: ER 14:29
DX: S60.031A Contusion of right middle finger without damage to nail, initial encounter (principal); M25.562 Pain in left knee; W22.8XXA Striking against or struck by other objects, initial encounter
CPT/HCPCS: 99283

== ENCOUNTER 2021-11-15 11:02 | Emergency (ER) | payer SELFPAY ==
[2021-11-15 14:14] LABS: Urine Blood Negative (Negative); Urine Glucose Negative (Negative); Urine Protein 1+ (Negative); Urine Specific Gravity >=1.030 (1.005-1.030); Urine pH 5.5 (5.0-7.0)
[2021-11-15 14:23] LABS: Absolute Lymphocytes (CBC) 0.5 K/uL (0.7-4.9); Hematocrit 47.9 % (39.6-49.0); Lymphocytes % 8.6 % (15.3-44.8); MCV 85.7 fL (80-100); MPV 8.8 fL (7.6-11.3); RBC Red Blood Cell Count 5.59 M/uL (4.33-5.43)
[2021-11-15 14:36] LABS: Potassium 3.6 mmol/L (3.5-5.1)
--- NOTE | 2021-11-15 15:16 | EDPHYS ---
Physician Documentation [facility] Name: Nabil Ambriz Age: 21 yrs Sex: Male : 2000 Arrival Date: 11/15/2021 Time: 11:04 Bed 11 Private MD: ED Physician Richard Graham HPI: 11/15 11:42 This 21 yrs old Male presents to ER via Ambulatory with complaints of Near Syncope, jmm chills, Blurred Vision - r eye. 11:42 The patient has experienced near-syncope, almost passed out. Onset: The jmm symptoms/episode began/occurred yesterday. Associated injury: The patient did not suffer any apparent associated injury. This is a 21 year old male with no chronic medical conditions that presents to the ED with complaints weakness, fever, body aches Patient states yesterday he almost passed out while sitting down yesterday. patient also complains of right sided headache. . Historical: - Allergies: 11:39 No Known Allergies; ss - Home Meds: 11:39 None [Active]; ss - PMHx: 11:39 None; ss - PSHx: 11:39 None; ss - Immunization history:: Client reports having NOT received the Covid vaccine. - Social history:: Smoking status: Patient/guardian denies using tobacco, Stopped _ months ago 1. ROS: 14:28 Constitutional: Positive for body aches, chills. jmm 14:28 Respiratory: Positive for cough. 14:28 Neuro: Positive for headache, near syncope. 14:28 All other systems are negative. Exam: 14:28 Constitutional: This is a well developed, well nourished patient who is awake, alert, jmm and in no acute distress. Head/Face: atraumatic. Eyes: EOMI, no conjunctival erythema appreciated ENT: Moist Mucus Membranes Neck: Trachea midline, Supple Chest/axilla: Normal chest wall appearance and motion. Cardiovascular: Regular rate and rhythm. No edema appreciated Respiratory: Normal respirations, no respiratory distress appreciated Abdomen/GI: Non distended Back: Normal ROM Skin: General appearance color normal MS/ Extremity: Moves all extremities, no obvious deformities appreciated, no edema noted to the lower extremities Neuro: Awake and alert Psych: Behavior is normal, Mood is normal, Patient is cooperative and pleasant Vital Signs: 11:39 BP 125 / 89; Pulse 103; Resp 16; Temp 99.6(O); Pulse Ox 98% on R/A; Weight 65.77 kg; ss Height 5 ft. 7 in. (170.18 cm); Pain 8/10; 11:39 Body Mass Index 22.71 (65.77 kg, 170.18 cm) ss MDM: 12:15 Patient medically screened. [facility] 15:14 Data reviewed: vital signs, nurses notes. Counseling: I had a detailed discussion with delfin the patient and/or guardian regarding: the historical points, exam findings, and any diagnostic results supporting the discharge/admit diagnosis, lab results, the need for outpatient follow up, to return to the emergency department if symptoms worsen or persist or if there are any questions or concerns that arise at home. 11/15 11:42 Order name: Flu; Complete Time: 13:32 ss 11/15 11:42 Order name: COVID-19 SARS RT PCR (Document "Date of Onset" if Symptomatic); Complete ss Time: 14:22 11/15 12:15 Order name: Strep; Complete Time: 15:24 [facility] 11/15 13:38 Order name: CBC with Diff; Complete Time: 14:30 [facility] 11/15 13:38 Order name: BMP; Complete Time: 14:47 [facility] 11/15 14:14 Order name: Urine Dipstick-Ancillary; Complete Time: 14:15 EDMS 11/15 12:15 Order name: EKG - Nurse/Tech; Complete Time: 13:38 [facility] 11/15 13:33 Order name: Urine Dipstick-Ancillary (obtain specimen); Complete Time: 14:11 [facility] 11/15 13:38 Order name: Saline Lock; Complete Time: 14:11 [facility] 11/15 15:22 Order name: Throat Culture EDIN Administered Medications: No medications were administered Disposition: 19:59 Co-signature as Attending Physician, Richard WILKINSON was immediately available on-site ms3 in the Emergency Department for consultation in the care of the patient.. Disposition Summary: 11/15/21 15:15 Discharge Ordered Location: Home [facility] Condition: Stable [facility] Diagnosis - Coronavirus infection, unspecified [facility] Followup: [facility] - With: Private Physician - When: 2 - 3 days - Reason: Recheck today's complaints, Continuance of care, Re-evaluation by your physician Discharge Instructions: - Discharge Summary Sheet [facility] - COVID-19 [facility] Forms: - Medication Reconciliation Form [facility] - Thank You Letter [facility] - Antibiotic Education [facility] - Prescription Opioid Use [facility] Signatures: Dispatcher [employer] EDMS Lang Henderson PA PA jmm Smirch, Shelby, MICHELET RN ss Richard Graham DO DO ms3 Corrections: (The following items were deleted from the chart) 14:29 11:42 This is a 21 year old male with no chronic medical conditions that presents to [facility] the ED with complaints . delfin
--- NOTE | 2021-11-15 15:16 | ER ---
Nurse's Notes [facility] Name: Nabil Ambriz Age: 21 yrs Sex: Male : 2000 Arrival Date: 11/15/2021 Time: 11:04 Bed 11 Private MD: Diagnosis: Coronavirus infection, unspecified Presentation: 11/15 11:39 Chief complaint: Patient states: "Yesterday when I woke up I felt fine. As they day ss went on, I started feeling bad. I got up to use the restroom and went to sit down and I like blacked out. Ever since I started feeling bad I just have bad body aches.". Coronavirus screen: Client denies travel out of the [place] in the last 14 days. Ebola Screen: Patient denies exposure to infectious person. Patient denies travel to an Ebola-affected area in the 21 days before illness onset. Initial Sepsis Screen: Does the patient meet any 2 criteria? No. Patient's initial sepsis screen is negative. Does the patient have a suspected source of infection? No. Patient's initial sepsis screen is negative. Risk Assessment: Do you want to hurt yourself or someone else? Patient reports no desire to harm self or others. Onset of symptoms was November 14, 2021. 11:39 Method Of Arrival: Ambulatory ss 11:39 Acuity: SANDY 4 ss Historical: - Allergies: 11:39 No Known Allergies; ss - Home Meds: 11:39 None [Active]; ss - PMHx: 11:39 None; ss - PSHx: 11:39 None; ss - Immunization history:: Client reports having NOT received the Covid vaccine. - Social history:: Smoking status: Patient/guardian denies using tobacco, Stopped _ months ago 1. Screenin:44 Abuse screen: Denies threats or abuse. Nutritional screening: No deficits noted. ap3 Tuberculosis screening: No symptoms or risk factors identified. Fall Risk No fall in past 12 months (0 pts). Secondary diagnosis (15 points) near syncope. No IV (0 pts). Ambulatory Aid- None/Bed Rest/Nurse Assist (0 pts). Gait- Weak (10 pts.). Mental Status- Oriented to own ability (0 pts). Assessment: 13:44 General: Appears comfortable, Behavior is calm, cooperative, appropriate for age. Pain: ap3 Denies pain. Neuro: Level of Consciousness is awake, alert, obeys commands, Oriented to person, place, time, situation, Speech is normal. Cardiovascular: Patient's skin is warm and dry. Respiratory: Airway is patent Respiratory effort is even, unlabored, Respiratory pattern is regular, symmetrical. Vital Signs: 11:39 BP 125 / 89; Pulse 103; Resp 16; Temp 99.6(O); Pulse Ox 98% on R/A; Weight 65.77 kg; ss Height 5 ft. 7 in. (170.18 cm); Pain 8/10; 11:39 Body Mass Index 22.71 (65.77 kg, 170.18 cm) ED Course: 11:04 Patient arrived in ED. as 11:39 Arm band placed on right wrist. ss 11:41 Triage completed. 11:44 Lang Hendersno PA is PHCP. [facility] 11:44 Richard Graham DO is Attending Physician. m 12:12 COVID-19 SARS RT PCR (Document "Date of Onset" if Symptomatic) Sent. zm 12:12 Flu Sent. zm 13:31 Tashia Dexter, MICHELET is Primary Nurse. ap3 13:38 Verona Dugan RN is Primary Nurse. ss 13:38 EKG done, by ED staff. ss 13:45 Patient has correct armband on for positive identification. Bed in low position. Call ap3 light in reach. Side rails up X 1. Pulse ox on. NIBP on. Door closed. Noise minimized. Warm blanket given. 14:17 CBC with Diff Sent. zm 14:17 BMP Sent. zm 15:32 No provider procedures requiring assistance completed. Patient did not have IV access ap3 during this emergency room visit. Administered Medications: No medications were administered Medication: 15:33 VIS not applicable for this client. ap3 Outcome: 15:15 Discharge ordered by . delfin 15:32 Discharged to home ambulatory. ap3 15:32 Condition: good 15:32 Discharge instructions given to patient, Instructed on discharge instructions, follow up and referral plans. Demonstrated understanding of instructions, follow-up care. 15:33 Patient left the ED. ap3 Signatures: Lang Henderson PA PA jmm Martinez, Amelia as Smirch, Shelby, RN RN ss Tashia Dexter, RN RN ap3 Zayda Stout zm
[2021-11-15 16:04] VITALS: BP 125/89; TEMP 99.6; O2SAT 98
--- NOTE | 2021-11-19 14:01 | EKG ---
Test Date: 2021-11-15 Test Time: 13:33:12 Labeling Specialist: MARTY MEASUREMENT RESULTS: Intervals: Rate: 89 GA: 156 QRSD: 104 QT: 360 QTc: 438 [place]: P: 78 GA: 156 QRS: 96 T: 56 INTERPRETIVE STATEMENTS: Normal sinus rhythm Rightward axis Incomplete right bundle branch block Borderline ECG Compared to ECG 07/11/2021 09:04:17 Sinus arrhythmia no longer present Atrial abnormality no longer present Electronically Signed On 11-19-21 13:53:14 CDT by Randall Corley
== END 2021-11-15 15:33 | disposition home or self-care (01) ==
LOC: ER 11:02
DX: U07.1 COVID-19 (principal)
CPT/HCPCS: 36415; 80048; 81003; 85025; 87070; 87081; 87804; 93005; U0003

== ENCOUNTER → 2023-06-05 | Emergency (ER) | payer SELFPAY ==
[~2023-06-05] MED LIST: KETOROLAC 30 MG/ML INJ ONE
--- NOTE | 2023-06-05 13:14 | RAD REPORT ---
EXAM DESCRIPTION: Tessa Single View06/05/2023 1:06 pm CLINICAL HISTORY: Chest pain COMPARISON: none FINDINGS: The lungs appear clear of acute infiltrate. The heart is normal size IMPRESSION: No acute abnormalities displayed
[2023-06-05 13:31] LABS: Absolute Lymphocytes (CBC) 1.8 K/uL (0.7-4.9); Hematocrit 43.8 % (39.6-49.0); Lymphocytes % 27.9 % (15.3-44.8); MCV 83.6 fL (80-100); Platelets 193 thou/uL (152-406); RBC Red Blood Cell Count 5.24 M/uL (4.33-5.43)
[2023-06-05 13:46] LABS: BUN Blood Urea Nitrogen 10 mg/dL (7-18); Bicarbonate 27 mEq/L (21-32); Glomerular Filtration Rate 126 ml/min (=/>90); Glucose Level 106 mg/dL (74-106); Potassium 3.8 mEq/L (3.5-5.1); Sodium Level 142 mEq/L (136-145)
[2023-06-05 13:47] LABS: Troponin High Sensitivity < 3.0 pg/mL (<58.9)
--- NOTE | 2023-06-05 13:51 | ER ---
Nurse's Notes [facility] Name: Nabil Ambriz Age: 22 yrs Sex: Male : 2000 Arrival Date: 06/05/2023 Time: 12:27 Bed 11 Private MD: Diagnosis: Chest pain, unspecified Presentation: 06/05 12:44 Chief complaint: Patient states: Left sided chest pain that he describes as a sharp cm10 pain onset in 2019. Pt states that the pain is intermittent but recently has been happening more frequently. Pt reports that the pain sometimes radiates to right side. Pain is worse with deep breaths. Pt reports that the pain has resolved at this time. Coronavirus screen: Vaccine status: Patient reports being unvaccinated. Client denies travel out of the [place] in the last 14 days. Ebola Screen: Patient denies travel to an Ebola-affected area in the 21 days before illness onset. No symptoms or risks identified at this time. Initial Sepsis Screen: Does the patient meet any 2 criteria? No. Patient's initial sepsis screen is negative. Does the patient have a suspected source of infection? No. Patient's initial sepsis screen is negative. Risk Assessment: Do you want to hurt yourself or someone else? Patient reports no desire to harm self or others. Onset of symptoms was June 05, 2023. 12:44 Method Of Arrival: Ambulatory cm10 12:44 Acuity: SANDY 3 cm10 Triage Assessment: 12:46 General: Appears in no apparent distress. comfortable, Behavior is calm, cooperative. cm10 Pain: Complains of pain in chest right side of chest Pain currently is 0 out of 10 on a pain scale. Quality of pain is described as sharp, Pain began years ago. Is intermittent, Aggravated by Deep breaths. EENT: No deficits noted. No signs and/or symptoms were reported regarding the EENT system. Neuro: No deficits noted. Barr Agitation-Sedation Scale (RASS): 0 - Alert and Calm Level of Consciousness is awake, alert, obeys commands, Oriented to person, place, time, situation, Appropriate for age. Cardiovascular: Reports chest pain, since 2019 Capillary refill < 3 seconds Patient's skin is warm and dry. Respiratory: No deficits noted. Airway is patent Respiratory effort is even, unlabored, Respiratory pattern is regular, symmetrical, Denies shortness of breath. GI: No deficits noted. No signs and/or symptoms were reported involving the gastrointestinal system. : No deficits noted. No signs and/or symptoms were reported regarding the genitourinary system. Derm: No deficits noted. No signs and/or symptoms reported regarding the dermatologic system. Skin is intact, Skin is pink, warm \T\ dry. Musculoskeletal: No deficits noted. No signs and/or symptoms reported regarding the musculoskeletal system. Historical: - Allergies: 12:46 No Known Allergies; cm10 - Home Meds: 12:46 None [Active]; cm10 - PMHx: 12:46 None; cm10 - PSHx: 12:46 None; cm10 - Immunization history:: Adult Immunizations up to date. - Social history:: Smoking status: Reported history of juuling and/or vaping. - Family history:: not pertinent. - Hospitalizations: : No recent hospitalization is reported. Screenin:48 [facility] ED Fall Risk Assessment (Adult) History of falling in the last 3 months, cm10 including since admission No falls in past 3 months (0 pts) Confusion or Disorientation No (0 pts) Intoxicated or Sedated No (0 pts) Impaired Gait No (0 pts) Mobility Assist Device Used No (0 pt) Altered Elimination No (0 pt) Score/Fall Risk Level 0 - 2 = Low Risk Oriented to surroundings, Maintained a safe environment, Hourly rounding (assess needs \T\ fall precautionary measures) done. Abuse screen: Denies threats or abuse. Denies injuries from another. Nutritional screening: No deficits noted. Tuberculosis screening: No symptoms or risk factors identified. Assessment: 12:58 General: Appears in no apparent distress. comfortable, Behavior is calm, cooperative, ld1 appropriate for age. Pain: Complains of pain in chest Pain does not radiate. Pain currently is 7 out of 10 on a pain scale. Quality of pain is described as throbbing, Pain began 4 years Is intermittent. Neuro: Level of Consciousness is awake, alert, obeys commands, Oriented to person, place, time, situation. Cardiovascular: Capillary refill < 3 seconds Patient's skin is warm and dry. Respiratory: Airway is patent Respiratory effort is even, unlabored. GI: Abdomen is flat, non-distended. : No signs and/or symptoms were reported regarding the genitourinary system. EENT: No signs and/or symptoms were reported regarding the EENT system. Derm: No signs and/or symptoms reported regarding the dermatologic system. Musculoskeletal: No signs and/or symptoms reported regarding the musculoskeletal system. Vital Signs: 12:44 BP 122 / 76; Pulse 83; Resp 15; Temp 98.5(O); Pulse Ox 97% on R/A; Weight 65.77 kg; cm10 Height 5 ft. 8 in. ; Pain 0/10; 12:44 Body Mass Index 22.05 (65.77 kg, 172.72 cm) cm10 12:44 Pain Scale: Adult cm10 ED Course: 12:30 Patient arrived in ED. mg5 12:37 Gokul Carballo MD is Attending Physician. rn 12:46 Triage completed. cm10 12:48 Arm band placed on Patient placed in an exam room, on a stretcher, on pulse oximetry. cm10 EKG completed in triage. Results shown to MD. 12:48 Patient has correct armband on for positive identification. Placed in gown. Bed in low cm10 position. Call light in reach. Side rails up X2. Provided Education on: ER process and procedures. . Client placed on continuous cardiac and pulse oximetry monitoring. NIBP monitoring applied. 12:48 EKG done, by ED staff, reviewed by Gokul Carballo MD. cm10 12:58 Delia Graham, RN is Primary Nurse. ld1 12:58 No provider procedures requiring assistance completed. Patient maintains SpO2 ld1 saturation greater than 95% on room air. 13:07 XRAY Chest (1 view) In Process Unspecified. EDMS 13:22 Initial lab(s) drawn, by me, sent to lab. Inserted saline lock: 20 gauge in left wrist, [id number] using aseptic technique. Blood collected. 14:06 IV discontinued, intact, bleeding controlled, No redness/swelling at site. ld1 Administered Medications: 14:05 Drug: Ketorolac IVP 30 mg IVP once Route: IVP; Site: left wrist; ld1 Medication: 12:48 VIS not applicable for this client. cm10 Outcome: 13:51 Discharge ordered by . rn 14:05 Discharged to home ambulatory, ld1 14:05 Condition: stable 14:05 Discharge instructions given to patient, Instructed on discharge instructions, follow up and referral plans. 14:06 Patient left the ED. ld1 Signatures: Dispatcher [employer] EDGokul Rosas MD MD rn Sims, Lauren, RN RN ld1 Fiorella Stout RN RN cm10 Lissette Peters mg5 Gerald Carlson jg11 Corrections: (The following items were deleted from the chart) 12:48 12:44 BP 122 / 76; Pulse 83bpm; Resp 15bpm; Pulse Ox 97% RA; 65.77 kg; Height 5 ft. 8 cm10 in.; BMI: 22.0; Pain 0/10, Adult; cm10
--- NOTE | 2023-06-05 13:52 | EDPHYS ---
Physician Documentation [facility] Name: Nabil Ambriz Age: 22 yrs Sex: Male : 2000 Arrival Date: 06/05/2023 Time: 12:27 Bed 11 Private MD: ED Physician Gokul Carballo HPI: 06/05 12:45 This 22 yrs old Male presents to ER via Unassigned with complaints of Chest Pain. rn 12:45 The patient or guardian reports chest pain that is located primarily in the anterior rn chest wall, left. The pain does not radiate. Associated signs and symptoms: Pertinent negatives: abdominal pain, cough, shortness of breath, syncope, vomiting. The chest pain is described as sharp, stabbing. Modifying factors: The symptoms are alleviated by nothing. the symptoms are aggravated by deep breath. Severity of pain: At its worst the pain was mild in the emergency department the pain is unchanged. The patient has experienced similar episodes in the past. The patient has not recently seen a physician. Patient reports 2 years of intermittent left anterior chest pain. Feels sharp and stabbing. Worse with deep breath. Patient states he vapes. No trauma. No hemoptysis. No shortness of breath. No recent illness. No family history of early cardiac disease. No history of pneumothorax. Patient states getting more frequent so came in for evaluation.. Historical: - Allergies: 12:46 No Known Allergies; cm10 - Home Meds: 12:46 None [Active]; cm10 - PMHx: 12:46 None; cm10 - PSHx: 12:46 None; cm10 - Immunization history:: Adult Immunizations up to date. - Social history:: Smoking status: Reported history of juuling and/or vaping. - Family history:: not pertinent. - Hospitalizations: : No recent hospitalization is reported. ROS: 12:45 Constitutional: Negative for fever, chills, and weight loss, Eyes: Negative for injury, rn pain, redness, and discharge, Neck: Negative for injury, pain, and swelling, Cardiovascular: Negative for palpitations, and edema, Respiratory: Negative for shortness of breath, cough, wheezing Abdomen/GI: Negative for abdominal pain, nausea, vomiting, diarrhea, and constipation, MS/Extremity: Negative for injury and deformity, Neuro: Negative for headache, weakness, numbness, tingling, and seizure, Exam: 12:45 Constitutional: This is a well developed, well nourished patient who is awake, alert, rn and in no acute distress. Ambulatory to room without difficulty or assistance Head/Face: Normocephalic, atraumatic. Cardiovascular: Regular rate and rhythm. No pulse deficits. Respiratory: No increased work of breathing, no retractions or nasal flaring. Abdomen/GI: Soft, non-tender MS/ Extremity: Pulses equal, no cyanosis. Neurovascular intact. Full, normal range of motion. Equal circumference. Neuro: Awake and alert, GCS 15 Vital Signs: 12:44 BP 122 / 76; Pulse 83; Resp 15; Temp 98.5(O); Pulse Ox 97% on R/A; Weight 65.77 kg; cm10 Height 5 ft. 8 in. ; Pain 0/10; 12:44 Body Mass Index 22.05 (65.77 kg, 172.72 cm) cm10 12:44 Pain Scale: Adult cm10 MDM: 12:37 Patient medically screened. rn 13:50 Differential diagnosis: acute pericarditis, chest wall pain, costochondritis, pleurisy, rn pneumonia, pneumothorax, pulmonary embolus. Data reviewed: vital signs, nurses notes, lab test result(s), EKG, radiologic studies, plain films, and as a result, I will discharge patient. Counseling: I had a detailed discussion with the patient and/or guardian regarding the historical points, exam findings, and any diagnostic results supporting the discharge/admit diagnosis, lab results, radiology results, the need for outpatient follow up, to return to the emergency department if symptoms worsen or persist or if there are any questions or concerns that arise at home. Special discussion: Based on the patient's history, exam, and Dx evaluation, there is no indication for emergent intervention or inpatient Tx. It is understood by the patient/guardian that if the Sx's persist or worsen they need to return immediately for re-evaluation. I discussed with the patient/guardian in detail that at this point there is no indication for admission to the hospital. It is understood, however, that if the symptoms persist or worsen the patient needs to return immediately for re-evaluation. 06/05 12:44 Order name: Basic Metabolic Panel; Complete Time: 13:50 rn 06/05 12:44 Order name: CBC with Diff; Complete Time: 13:40 rn 06/05 12:44 Order name: D-Dimer; Complete Time: 13:50 rn 06/05 12:44 Order name: Troponin HS; Complete Time: 13:50 rn 06/05 12:44 Order name: XRAY Chest (1 view); Complete Time: 13:16 rn 06/05 12:44 Order name: EKG; Complete Time: 12:44 rn 06/05 12:44 Order name: Cardiac monitoring; Complete Time: 12:49 rn 06/05 12:44 Order name: EKG - Nurse/Tech; Complete Time: 12:48 rn 06/05 12:44 Order name: IV Saline Lock; Complete Time: 13:22 rn 06/05 12:44 Order name: Labs collected and sent; Complete Time: 13:22 rn 06/05 12:44 Order name: O2 Per Protocol; Complete Time: 12:49 rn 06/05 12:44 Order name: O2 Sat Monitoring; Complete Time: 12:49 rn Administered Medications: 14:05 Drug: Ketorolac IVP 30 mg IVP once Route: IVP; Site: left wrist; ld1 Disposition Summary: 06/05/23 13:51 Discharge Ordered Notes: Location: Home rn Problem: an ongoing problem rn Symptoms: have improved rn Condition: Stable rn Diagnosis - Chest pain, unspecified rn Followup: rn - With: Private Physician - When: As needed - Reason: Recheck today's complaints, Re-evaluation by your physician Discharge Instructions: - Discharge Summary Sheet rn - Nonspecific Chest Pain, Adult rn Forms: - Medication Reconciliation Form rn - Thank You Letter rn - Antibiotic melter supervisor [employer] - Prescription Opioid Use rn - Patient Portal Instructions rn - Leadership Thank You Letter rn - Work release form aa5 Signatures: Dispatcher [employer] Gokul Snigh MD MD rn Sims, Lauren RN RN ld1 Fiorella Stout RN RN cm10
[2023-06-05 15:17] VITALS: BP 122/76; TEMP 98.5; O2SAT 97
--- NOTE | 2023-06-12 13:57 | EKG ---
Test Date: 2023-06-05 Test Time: 12:44:33 Contract Associate: KRISTINA MEASUREMENT RESULTS: Intervals: Rate: 75 AK: 138 QRSD: 106 QT: 380 QTc: 424 [place]: P: 90 [place]: 138 QRS: 100 T: 77 INTERPRETIVE STATEMENTS: Suspect arm lead reversal, interpretation assumes no reversal Normal sinus rhythm Rightward axis Incomplete right bundle branch block Borderline ECG Compared to ECG 11/15/2021 13:33:12 No significant changes Electronically Signed On 06-12-23 13:31:24 TROMMEL TENDER by Randall Corley
== END ==
LOC: ER 12:27
DX: R07.9 Chest pain, unspecified (principal); Z87.891 Personal history of nicotine dependence
CPT/HCPCS: 36415; 71045; 80048; 84484; 85025; 85379; 93005; 96374; 99285